=== PATIENT | female | born 1990 | race African-American/Black ===

== ENCOUNTER 2021-10-30 07:11 | Inpatient (IN) | payer MEDICAID, OTHER ==
[~2021-10-30] VITALS: Ht 167.6 cm; Wt 80.3 kg
[2021-10-30] MEDS ORDERED: DEXT 5%/LR + PITOCIN 20UNITS/L 1,000 ML IV SCH ×2 (08:15→15:15)
[2021-10-30] MEDS ORDERED: LACTATED RINGERS 1,000 ML IV SCH ×2 (08:15→08:30)
[2021-10-30 09:04] LABS: BASOPHILS % 0.2 % (0.0-2.0); EOSINOPHILS % 1.4 % (0.0-5.0); HEMATOCRIT. 36.4 % (36.0-48.0); HEMOGLOBIN. 12.5 g/dL (12.0-16.0); LYMPHOCYTES % 15.2 % (20.0-50.0); MEAN CORPUSCULAR HEMOGLOBIN 31.3 pg (28.0-32.0); MEAN CORPUSCULAR VOLUME 91.6 fL (81.0-99.0); MEAN PLATELET VOLUME 10.4 fl (7.4-10.4); MONOCYTES % 11.1 % (2.0-8.0); NEUTROPHILS % 72.1 % (40.0-76.0); PLATELET 154 x1000/uL (130-400); RED BLOOD CELL COUNT 3.98 mill/uL (4.2-5.4); RED CELL DISTRIBUTION WIDTH 13.9 % (11.6-14.6)
[2021-10-30 09:07] LABS: CLARITY URINE CLEAR (CLEAR); COLOR URINE YELLOW (YELLOW); KETONES URINE NEGATIVE (NEGATIVE); LEUKOCYTE ESTERASE URINE NEGATIVE (NEGATIVE); NITRITE URINE NEGATIVE (NEGATIVE); OCCULT BLOOD URINE NEGATIVE (NEGATIVE); PH URINE 6.5 (4.5-8.0); PROTEIN URINE NEGATIVE (NEGATIVE); SPECIFIC GRAVITY URINE 1.013 (1.005-1.030); UROBILINOGEN URINE 0.2 E.U./dL (0.2-1.0)
[2021-10-30 09:21] LABS: PARTIAL THROMBOPLASTIN TIME 28.4 sec (23.4-31.0); PROTHROMBIN TIME 10.3 sec (9.6-11.0)
[2021-10-30 09:36] LABS: *AMPHETAMINES SCREEN URINE NEGATIVE (NEGATIVE); *BARBITURATES SCREEN URINE NEGATIVE (NEGATIVE); *BENZODIAZEPINES SCREEN URINE NEGATIVE (NEGATIVE); *COCAINE SCREEN URINE NEGATIVE (NEGATIVE); CANNABINOID URINE SCREEN NEGATIVE (NEGATIVE); METHADONE URINE SCREEN NEGATIVE (NEGATIVE); OPIATES URINE SCREEN NEGATIVE (NEGATIVE); PHENCYCLIDINE URINE SCREEN NEGATIVE (NEGATIVE)
[2021-10-30] MEDS ORDERED: MORPHINE SULFATE/PF 1MG/ML 10ML AMP ONE (10:46)
[2021-10-30] MEDS ORDERED: FENTANYL CITRATE/PF 50MCG/ML 2ML VIAL ONE (10:46)
[2021-10-30] MEDS ORDERED: CEFAZOLIN SODIUM 1000MG/VIAL ONE ×2 (10:47)
[2021-10-30] MEDS ORDERED: PHENYLEPHRINE HCL 10 MG/ML 1ML (IV VIAL) IV ONE (10:47)
[2021-10-30] MEDS ORDERED: EPHEDRINE SULFATE 50MG/ML VIAL ONE ×2 (10:47→10:50)
[2021-10-30] MEDS ORDERED: OXYTOCIN 10 UNITS/ML 1ML ONE (10:47)
[2021-10-30] MEDS ORDERED: ONDANSETRON HCL 4MG/2ML INJ ONE (10:48)
[2021-10-30] MEDS ORDERED: KETOROLAC 60MG/2ML VIAL IM ONE (12:00)
[2021-10-30] MEDS ORDERED: DIPHENHYDRAMINE 50MG/ML VIAL ONE (12:00)
[2021-10-30] MEDS ORDERED: DIPHENHYDRAMINE 50MG/ML VIAL IV PRN (13:00)
[2021-10-30] MEDS ORDERED: BUTORPHANOL TARTRATE 2 MG/ML VIAL IV PRN (13:00)
[2021-10-30 14:55] VITALS: BP 113/79
[2021-10-30] MEDS ORDERED: ONDANSETRON HCL 4MG/2ML INJ IV PRN (15:15)
[2021-10-30] MEDS ORDERED: ACETAMINOPHEN WITH CODEINE 300/30MG TABLET PO PRN (15:15)
[2021-10-30] MEDS ORDERED: HYDROCODONE/ACETAMINOPHEN 5/325MG TABLET PO PRN ×2 (15:15)
[2021-10-30] MEDS ORDERED: IBUPROFEN 400MG TABLET PO PRN (15:15)
[2021-10-30] MEDS ORDERED: RHO(D) IMMUNE GLOBULIN 300 MCG/SYR IM PRN (15:15)
[2021-10-30] MEDS ORDERED: LANOLIN OINT 7GM TUBE TOP PRN (15:15)
[2021-10-30 17:00] VITALS: BP 110/72
[2021-10-30] MEDS: KETOROLAC 30MG/ML VIAL IV SCH (17:44)
[2021-10-30 20:00] VITALS: BP 103/63
[2021-10-30] MEDS: DOCUSATE SODIUM 100MG CAPSULE PO SCH (21:00)
[2021-10-31] VITALS: BP 102/60
[2021-10-31] MEDS ORDERED: KETOROLAC 30MG/ML VIAL IV SCH ×2 (03:00→10:00)
[2021-10-31] MEDS: KETOROLAC 30MG/ML VIAL IV SCH (03:31)
[2021-10-31 04:00] VITALS: BP 106/63
[2021-10-31 07:15] LABS: BASOPHILS % 0.2 % (0.0-2.0); HEMATOCRIT. 30.7 % (36.0-48.0); HEMOGLOBIN. 10.4 g/dL (12.0-16.0); LYMPHOCYTES % 12.6 % (20.0-50.0); MEAN CORPUSCULAR HEMOGLOBIN 31.1 pg (28.0-32.0); MEAN CORPUSCULAR VOLUME 92.2 fL (81.0-99.0); MEAN PLATELET VOLUME 9.9 fl (7.4-10.4); NEUTROPHILS % 74.2 % (40.0-76.0); PLATELET 141 x1000/uL (130-400); RED BLOOD CELL COUNT 3.33 mill/uL (4.2-5.4); RED CELL DISTRIBUTION WIDTH 13.9 % (11.6-14.6)
[2021-10-31 08:00] VITALS: BP 107/70
[2021-10-31] MEDS: PRENATAL VIT/FE FUMARATE/FA TABLET PO SCH (09:50)
[2021-10-31 16:00] VITALS: BP 114/74
[2021-10-31 19:00] VITALS: BP 116/76
[2021-10-31] MEDS: DOCUSATE SODIUM 100MG CAPSULE PO SCH (20:45)
[2021-11-01 00:01] VITALS: BP 120/70
[2021-11-01 04:00] VITALS: BP 99/57
[2021-11-01 07:30] VITALS: BP 102/73
[2021-11-01] MEDS ORDERED: IBUP-2028 PO (08:18)
[2021-11-01] MEDS: PRENATAL VIT/FE FUMARATE/FA TABLET PO SCH (08:37)
== END 2021-11-01 11:50 | disposition home or self-care (01) | DRG 540 ==
LOC: 8 EST LDRP 07:11 → OBSVTOIN 07:11 → 8EST 14:45
PROVIDERS: ADMIT Obstetrics & Gynecology; ATTEND Obstetrics & Gynecology
PROC: 10D00Z1 Extraction of Products of Conception, Low, Open Approach (ICD-10-PCS; principal; 2021-10-30)
DX: O32.1XX0 Maternal care for breech presentation, not applicable or unspecified (principal); D62 Acute posthemorrhagic anemia; O90.81 Anemia of the puerperium; Z20.822 Contact with and (suspected) exposure to COVID-19; Z37.0 Single live birth; Z3A.39 39 weeks gestation of pregnancy
CPT/HCPCS: 36415; 76815; 80305; 81003; 85025; 86592; 86703; 86850; 86900; 87340; 87426; 88307; 99281; J0595; J0690; J1200; J1885; J2274; J2370; J2405; J2590; J3010; J3490; J7120; A4315